=== PATIENT | female | born 1945 | race Two or more races ===

== ENCOUNTER 2020-05-04 18:15 | Inpatient (IN) | payer MEDICARE, OTHER ==
[~2020-05-04] VITALS: Ht 160 cm; Wt 93.1 kg
[2020-05-04] MEDS ORDERED: ACETAMINOPHEN 325 MG TAB PO ONE (19:00)
[2020-05-04 22:02] LABS: Basophils # (auto) 0 10 ^3/uL (0-0.2); Basophils % (auto) 0.1 % (0.0-2.0); Eosinophils # (auto) 0 10 ^3/uL (0-0.8); Hematocrit 31.8 % (36.0-46.0); Hemoglobin 10.6 g/dL (12.2-16.2); Lymphocytes # (auto) 0.4 10 ^3/uL (0.4-5.4); Lymphocytes % (auto) 5.7 % (10.0-50.0); Mean Corpuscular Hemoglobin 29.3 pg (28.0-32.0); Mean Corpuscular Hgb Conc. 33.4 g/dL (32.0-36.0); Mean Corpuscular Volume 87.9 fL (80.0-100.0); Monocytes # (auto) 0.2 10 ^3/uL (0-1.3); Monocytes % (auto) 3.7 % (0.0-12.0); Neutrophils # (auto) 5.9 10 ^3/uL (1.6-8.6); Neutrophils % (auto) 90.5 % (37.0-80.0); Nucleated Red Blood Cells % 0.1 %; Platelet Count (auto) 197 10^3/uL (140-450); Red Blood Cells 3.62 10^6/uL (4.0-5.20); Red Cell Distribution Width 13.3 % (11.8-14.3); White Blood Cell 6.6 10^3/uL (4.4-10.8)
[2020-05-04 22:21] LABS: Calcium 8.2 mg/dL (8.5-10.1)
[2020-05-04 22:30] LABS: Albumin 3.2 g/dL (3.4-5.0); BUN/Creatinine Ratio 20.9; Bilirubin, Total 0.4 mg/dL (0.2-1.0); Magnesium 2.4 mg/dL (1.6-2.6)
[2020-05-05] MEDS ORDERED: levoFLOXacin 750MG 150 ML IV ONE (01:45)
[2020-05-05] MEDS ORDERED: MORPHINE SULFATE 4 MG/ML SYR/VIAL IV ONE (02:15)
[2020-05-05] MEDS ORDERED: ONDANSETRON HCL 4 MG/2 ML VIAL IV ONE ×2 (02:15→07:00)
[2020-05-05 02:18] LABS: Urine Amorphous Crystal FEW /hpf (None Seen); Urine Bacteria FEW /hpf (None Seen); Urine Blood TRACE /uL (Negative); Urine WBC 1 /hpf (0 - 5)
[2020-05-05] MEDS ORDERED: InsuLIN REG 1unit/0.01ml Soln (100units/ml) IV ONE (04:00)
[2020-05-05] MEDS ORDERED: MORPHINE SULF INJ 2 MG/ML SYRINGE 1ML IV PRN (06:15)
[2020-05-05] MEDS ORDERED: HYDROmorphone HCL 2 MG/ML VL IV ONE (06:15)
[2020-05-05] MEDS ORDERED: ONDANSETRON HCL 4 MG/2 ML VIAL IV PRN (06:15)
[2020-05-05] MEDS ORDERED: NITROGLYCERIN 0.4 MG SL TAB SL PRN (06:15)
[2020-05-05] MEDS ORDERED: SODIUM CHLORIDE 0.9% 1,000 ML IV ONE (06:15)
[2020-05-05] MEDS ORDERED: DEXTROSE (50%) 50ML SYRG IV PRN (06:30)
[2020-05-05] MEDS ORDERED: ONDANSETRON HCL 4 MG/2 ML VIAL ONE (06:44)
[2020-05-05 10:29] LABS: Basophils # (auto) 0 10 ^3/uL (0-0.2); Basophils % (auto) 0.1 % (0.0-2.0); Eosinophils # (auto) 0 10 ^3/uL (0-0.8); Hematocrit 30.5 % (36.0-46.0); Hemoglobin 10.3 g/dL (12.2-16.2); Lymphocytes # (auto) 0.5 10 ^3/uL (0.4-5.4); Lymphocytes % (auto) 6.1 % (10.0-50.0); Mean Corpuscular Hemoglobin 29.8 pg (28.0-32.0); Mean Corpuscular Hgb Conc. 33.7 g/dL (32.0-36.0); Mean Corpuscular Volume 88.5 fL (80.0-100.0); Monocytes # (auto) 0.2 10 ^3/uL (0-1.3); Monocytes % (auto) 2.9 % (0.0-12.0); Neutrophils # (auto) 6.8 10 ^3/uL (1.6-8.6); Neutrophils % (auto) 90.9 % (37.0-80.0); Platelet Count (auto) 198 10^3/uL (140-450); Red Blood Cells 3.44 10^6/uL (4.0-5.20); Red Cell Distribution Width 13.4 % (11.8-14.3); White Blood Cell 7.5 10^3/uL (4.4-10.8)
[2020-05-05 10:55] LABS: Calcium 8.2 mg/dL (8.5-10.1); Potassium 4.8 mmol/L (3.5-5.1)
[2020-05-05 11:03] LABS: Albumin 2.7 g/dL (3.4-5.0); BUN/Creatinine Ratio 21.3; Bilirubin, Total 0.5 mg/dL (0.2-1.0); Total Protein 6.8 g/dL (6.4-8.2)
[2020-05-05] MEDS: levoFLOXacin 250MG 50 ML IV SCH (11:26)
[2020-05-05] MEDS: InsuLIN REG 1unit/0.01ml Soln (100units/ml) SC SCH ×2 (11:50→19:34)
[2020-05-05] MEDS: ACCU-CHEK COMFORT CURVE STRIP VI SCH ×2 (11:50→19:05)
[2020-05-05] MEDS ORDERED: ALBUTEROL SULF HFA 90MCG INH 200DOSE IN PRN (14:00)
[2020-05-05] MEDS ORDERED: ACETAMINOPHEN 325 MG TAB PO ONE (23:00)
[2020-05-06] MEDS: ACCU-CHEK COMFORT CURVE STRIP VI SCH ×5 (00:26→23:28)
[2020-05-06] MEDS: MORPHINE SULF INJ 2 MG/ML SYRINGE 1ML IV PRN ×3 (00:35→12:12)
[2020-05-06] MEDS: InsuLIN REG 1unit/0.01ml Soln (100units/ml) SC SCH ×5 (00:36→23:28)
[2020-05-06 02:38] VITALS: BP 122/56
[2020-05-06 05:00] VITALS: BP 125/60
[2020-05-06] MEDS ORDERED: ACETAMINOPHEN 500 MG TAB PO PRN (05:00)
[2020-05-06] MEDS: ACETAMINOPHEN 500 MG TAB PO PRN ×2 (06:42→21:35)
[2020-05-06 08:00] VITALS: BP 111/58
[2020-05-06] MEDS: levoFLOXacin 250MG 50 ML IV SCH (09:26)
[2020-05-06 09:33] LABS: Basophils # (auto) 0 10 ^3/uL (0-0.2); Basophils % (auto) 0.2 % (0.0-2.0); Eosinophils # (auto) 0 10 ^3/uL (0-0.8); Hematocrit 32.8 % (36.0-46.0); Hemoglobin 10.9 g/dL (12.2-16.2); Lymphocytes # (auto) 0.6 10 ^3/uL (0.4-5.4); Mean Corpuscular Hemoglobin 29.4 pg (28.0-32.0); Mean Corpuscular Hgb Conc. 33.1 g/dL (32.0-36.0); Mean Corpuscular Volume 88.7 fL (80.0-100.0); Monocytes # (auto) 0.2 10 ^3/uL (0-1.3); Monocytes % (auto) 2.8 % (0.0-12.0); Neutrophils # (auto) 7.7 10 ^3/uL (1.6-8.6); Platelet Count (auto) 255 10^3/uL (140-450); Red Cell Distribution Width 13.1 % (11.8-14.3); White Blood Cell 8.5 10^3/uL (4.4-10.8)
[2020-05-06 09:52] LABS: Albumin 2.7 g/dL (3.4-5.0); Calcium 8.8 mg/dL (8.5-10.1); Potassium 4.3 mmol/L (3.5-5.1)
[2020-05-06 09:55] LABS: BUN/Creatinine Ratio 21.1; Bilirubin, Total 0.4 mg/dL (0.2-1.0); Total Protein 7.1 g/dL (6.4-8.2)
[2020-05-06 12:00] VITALS: BP 140/64
[2020-05-06 17:00] VITALS: BP 130/65
[2020-05-06 22:00] VITALS: BP 166/78
[2020-05-06] MEDS ORDERED: METOPROLOL TARTRATE 50 MG TAB PO ONE (22:00)
[2020-05-07] MEDS ORDERED: METF-370 PO (04:18)
[2020-05-07] MEDS ORDERED: GLIP10TA9 PO (04:18)
[2020-05-07] MEDS ORDERED: ATOR20TA50 PO (04:18)
[2020-05-07] MEDS ORDERED: LOSA25TA38 PO (04:18)
[2020-05-07 05:00] VITALS: BP 107/45
[2020-05-07] MEDS: ACCU-CHEK COMFORT CURVE STRIP VI SCH ×3 (05:46→17:03)
[2020-05-07] MEDS: InsuLIN REG 1unit/0.01ml Soln (100units/ml) SC SCH ×3 (05:47→17:04)
[2020-05-07 06:16] LABS: Potassium 4.6 mmol/L (3.5-5.1)
[2020-05-07 06:25] LABS: Albumin 2.6 g/dL (3.4-5.0); BUN/Creatinine Ratio 24.5; Bilirubin, Total 0.4 mg/dL (0.2-1.0); Calcium 8.7 mg/dL (8.5-10.1); Phosphorus 4.5 mg/dL (2.5-4.90)
[2020-05-07 09:00] VITALS: BP 123/60
[2020-05-07] MEDS ORDERED: fentaNYL CITRATE 100 MCG/2 ML VL ONE (09:37)
[2020-05-07] MEDS ORDERED: MIDAZOLAM HCL 1MG/1ML-2 ML VIAL ONE (09:37)
[2020-05-07] MEDS: DexAMETHasone SOD PHOS 10MG/1ML VIAL INJ IV SCH (10:15)
[2020-05-07] MEDS ORDERED: cefTRIAXone 1GM/50ML D5W 50 ML IV ONE (10:45)
[2020-05-07] MEDS ORDERED: AZITHROMYCIN 500MG/ 250ML 250 ML IV ONE (10:45)
[2020-05-07] MEDS ORDERED: FAMOTIDINE 20 MG TAB PO ONE (10:45)
[2020-05-07] MEDS ORDERED: ALBUTEROL SULF HFA 90MCG INH 200DOSE IN SCH (12:00)
[2020-05-07 13:00] VITALS: BP_SYST 114; BP_SYST 135; BP_DIAS 57; BP_DIAS 71
[2020-05-07] MEDS ORDERED: ALBUTEROL SULF HFA 90MCG INH 200DOSE IN PRN (13:30)
[2020-05-07] MEDS: SODIUM CHLORIDE 0.9% 1,000 ML IV SCH (16:08)
[2020-05-07] MEDS: guaiFENesin 200 MG/10 ML UD PO SCH ×3 (16:09→23:12)
[2020-05-07 16:53] LABS: Protein, Urine 75.9 mg/dL (0.0-11.9)
[2020-05-07 17:00] VITALS: BP 117/60
[2020-05-07] MEDS: ALBUTEROL SULF HFA 90MCG INH 200DOSE IN PRN (19:34)
[2020-05-07 22:00] VITALS: BP 127/65
[2020-05-07] MEDS: HEPARIN SODIUM (PORCINE) 5000 UNITS/ML 1ML VIAL SC SCH (23:17)
[2020-05-08] MEDS: ACCU-CHEK COMFORT CURVE STRIP VI SCH ×5 (00:42→23:31)
[2020-05-08] MEDS: ACETAMINOPHEN 500 MG TAB PO PRN ×2 (00:42→06:03)
[2020-05-08] MEDS: InsuLIN REG 1unit/0.01ml Soln (100units/ml) SC SCH ×5 (00:50→23:35)
[2020-05-08 05:00] VITALS: BP 116/59
[2020-05-08] MEDS: guaiFENesin 200 MG/10 ML UD PO SCH ×4 (05:54→23:31)
[2020-05-08] MEDS: SODIUM CHLORIDE 0.9% 1,000 ML IV SCH ×2 (06:23→13:24)
[2020-05-08 06:56] LABS: Basophils # (auto) 0 10 ^3/uL (0-0.2); Basophils % (auto) 0.2 % (0.0-2.0); Eosinophils # (auto) 0.1 10 ^3/uL (0-0.8); Eosinophils % (auto) 0.8 % (0.0-7.0); Hematocrit 32.6 % (36.0-46.0); Hemoglobin 10.6 g/dL (12.2-16.2); Lymphocytes % (auto) 12.7 % (10.0-50.0); Mean Corpuscular Hgb Conc. 32.7 g/dL (32.0-36.0); Mean Corpuscular Volume 88.6 fL (80.0-100.0); Monocytes # (auto) 0.4 10 ^3/uL (0-1.3); Monocytes % (auto) 5.4 % (0.0-12.0); Neutrophils # (auto) 6.4 10 ^3/uL (1.6-8.6); Neutrophils % (auto) 80.9 % (37.0-80.0); Nucleated Red Blood Cells % 0.1 %; Platelet Count (auto) 284 10^3/uL (140-450); Red Blood Cells 3.68 10^6/uL (4.0-5.20); Red Cell Distribution Width 13.9 % (11.8-14.3); White Blood Cell 7.9 10^3/uL (4.4-10.8)
[2020-05-08 07:23] LABS: Albumin 2.6 g/dL (3.4-5.0); Calcium 8.5 mg/dL (8.5-10.1); Potassium 4.2 mmol/L (3.5-5.1)
[2020-05-08 07:32] LABS: BUN/Creatinine Ratio 28.7; Bilirubin, Total 0.4 mg/dL (0.2-1.0); Total Protein 7.2 g/dL (6.4-8.2)
[2020-05-08 08:00] VITALS: BP 119/64
[2020-05-08] MEDS ORDERED: FAMOTIDINE 20 MG TAB PO SCH (10:00)
[2020-05-08] MEDS: DexAMETHasone SOD PHOS 10MG/1ML VIAL INJ IV SCH (11:03)
[2020-05-08] MEDS: cefTRIAXone 1GM/50ML D5W 50 ML IV SCH (11:03)
[2020-05-08] MEDS: HEPARIN SODIUM (PORCINE) 5000 UNITS/ML 1ML VIAL SC SCH ×2 (11:04→21:15)
[2020-05-08] MEDS: AZITHROMYCIN 500MG/ 250ML 250 ML IV SCH (11:04)
[2020-05-08 12:00] VITALS: BP 144/77
[2020-05-08 17:00] VITALS: BP 146/86
[2020-05-08] MEDS: ALBUTEROL SULF HFA 90MCG INH 200DOSE IN PRN (19:12)
[2020-05-08] MEDS: HYDROmorphone HCL 2 MG/ML VL IV PRN (20:47)
[2020-05-09] MEDS: SODIUM CHLORIDE 0.9% 1,000 ML IV SCH ×2 (01:59→15:35)
[2020-05-09 05:00] VITALS: BP_SYST 101; BP_SYST 151; BP_DIAS 49; BP_DIAS 63
[2020-05-09] MEDS: ACCU-CHEK COMFORT CURVE STRIP VI SCH ×3 (06:00→18:00)
[2020-05-09] MEDS: guaiFENesin 200 MG/10 ML UD PO SCH ×3 (06:46→18:00)
[2020-05-09] MEDS: InsuLIN REG 1unit/0.01ml Soln (100units/ml) SC SCH ×3 (06:48→18:00)
[2020-05-09] MEDS: ALBUTEROL SULF HFA 90MCG INH 200DOSE IN PRN (07:10)
[2020-05-09] MEDS: HYDROmorphone HCL 2 MG/ML VL IV PRN ×2 (07:47→13:00)
[2020-05-09] MEDS: cefTRIAXone 1GM/50ML D5W 50 ML IV SCH (09:00)
[2020-05-09 09:24] VITALS: BP 159/75
[2020-05-09 09:38] LABS: Basophils # (auto) 0 10 ^3/uL (0-0.2); Basophils % (auto) 0.3 % (0.0-2.0); Eosinophils # (auto) 0 10 ^3/uL (0-0.8); Eosinophils % (auto) 0.1 % (0.0-7.0); Hematocrit 31.5 % (36.0-46.0); Hemoglobin 10.2 g/dL (12.2-16.2); Lymphocytes # (auto) 0.7 10 ^3/uL (0.4-5.4); Lymphocytes % (auto) 9.7 % (10.0-50.0); Mean Corpuscular Hemoglobin 29.2 pg (28.0-32.0); Mean Corpuscular Hgb Conc. 32.6 g/dL (32.0-36.0); Mean Corpuscular Volume 89.6 fL (80.0-100.0); Monocytes # (auto) 0.6 10 ^3/uL (0-1.3); Monocytes % (auto) 7.7 % (0.0-12.0); Neutrophils # (auto) 5.9 10 ^3/uL (1.6-8.6); Neutrophils % (auto) 82.2 % (37.0-80.0); Platelet Count (auto) 349 10^3/uL (140-450); Red Blood Cells 3.51 10^6/uL (4.0-5.20); Red Cell Distribution Width 13.3 % (11.8-14.3); White Blood Cell 7.2 10^3/uL (4.4-10.8)
[2020-05-09 09:48] LABS: Potassium 3.9 mmol/L (3.5-5.1)
[2020-05-09] MEDS: DexAMETHasone SOD PHOS 10MG/1ML VIAL INJ IV SCH (10:00)
[2020-05-09] MEDS: AZITHROMYCIN 500MG/ 250ML 250 ML IV SCH (10:00)
[2020-05-09] MEDS: HEPARIN SODIUM (PORCINE) 5000 UNITS/ML 1ML VIAL SC SCH ×2 (10:00→22:00)
[2020-05-09 10:12] LABS: Albumin 2.6 g/dL (3.4-5.0); BUN/Creatinine Ratio 28.4; Bilirubin, Total 0.4 mg/dL (0.2-1.0); Calcium 8.8 mg/dL (8.5-10.1); Total Protein 7.4 g/dL (6.4-8.2)
[2020-05-09 13:00] VITALS: BP 135/77
[2020-05-09 17:00] VITALS: BP 162/82
[2020-05-09 20:05] VITALS: BP 131/74
[2020-05-10] VITALS (7 sets, daily range): BP systolic 120–148; BP diastolic 51–83
[2020-05-10] MEDS: guaiFENesin 200 MG/10 ML UD PO SCH ×5 (00:14→22:54)
[2020-05-10] MEDS: ACCU-CHEK COMFORT CURVE STRIP VI SCH ×5 (00:15→22:54)
[2020-05-10] MEDS: HYDROmorphone HCL 2 MG/ML VL IV PRN ×2 (04:05→19:50)
[2020-05-10] MEDS: SODIUM CHLORIDE 0.9% 1,000 ML IV SCH ×2 (05:47→18:02)
[2020-05-10] MEDS: InsuLIN REG 1unit/0.01ml Soln (100units/ml) SC SCH ×4 (05:50→18:02)
[2020-05-10 07:43] LABS: Basophils # (auto) 0 10 ^3/uL (0-0.2); Basophils % (auto) 0.1 % (0.0-2.0); Eosinophils # (auto) 0 10 ^3/uL (0-0.8); Eosinophils % (auto) 0.2 % (0.0-7.0); Hematocrit 31.3 % (36.0-46.0); Hemoglobin 10.2 g/dL (12.2-16.2); Lymphocytes # (auto) 0.7 10 ^3/uL (0.4-5.4); Lymphocytes % (auto) 8.4 % (10.0-50.0); Mean Corpuscular Hemoglobin 29.3 pg (28.0-32.0); Mean Corpuscular Hgb Conc. 32.6 g/dL (32.0-36.0); Mean Corpuscular Volume 90.1 fL (80.0-100.0); Monocytes # (auto) 0.3 10 ^3/uL (0-1.3); Monocytes % (auto) 3.9 % (0.0-12.0); Neutrophils # (auto) 7.3 10 ^3/uL (1.6-8.6); Neutrophils % (auto) 87.4 % (37.0-80.0); Platelet Count (auto) 338 10^3/uL (140-450); Red Blood Cells 3.47 10^6/uL (4.0-5.20); Red Cell Distribution Width 13.5 % (11.8-14.3); White Blood Cell 8.4 10^3/uL (4.4-10.8)
[2020-05-10 07:55] LABS: Albumin 2.5 g/dL (3.4-5.0); BUN/Creatinine Ratio 23.6; Calcium 8.8 mg/dL (8.5-10.1)
[2020-05-10 07:57] LABS: Bilirubin, Total 0.6 mg/dL (0.2-1.0); Total Protein 6.9 g/dL (6.4-8.2)
[2020-05-10 08:27] LABS: CRP High Sensitivity 9.09 mg/dL (< 0.3)
[2020-05-10] MEDS ORDERED: REMDESIVIR PER PHARMACY 0 ML IV SCH ×2 (09:30→10:45)
[2020-05-10] MEDS: cefTRIAXone 1GM/50ML D5W 50 ML IV SCH (12:22)
[2020-05-10] MEDS: DexAMETHasone SOD PHOS 10MG/1ML VIAL INJ IV SCH (12:22)
[2020-05-10] MEDS: AZITHROMYCIN 500MG/ 250ML 250 ML IV SCH (12:23)
[2020-05-10] MEDS: HEPARIN SODIUM (PORCINE) 5000 UNITS/ML 1ML VIAL SC SCH ×2 (12:24→22:00)
[2020-05-10] MEDS ORDERED: REMDESIVIR 200 MG in NS 210ml LOADING DOSE ADULT IV ONE ×2 (15:00→18:15)
[2020-05-10] MEDS: ALBUTEROL SULF HFA 90MCG INH 200DOSE IN PRN (20:58)
[2020-05-11] MEDS: InsuLIN REG 1unit/0.01ml Soln (100units/ml) SC SCH ×5 (00:10→22:29)
[2020-05-11 05:00] VITALS: BP 146/78
[2020-05-11] MEDS: ACCU-CHEK COMFORT CURVE STRIP VI SCH ×4 (05:14→22:26)
[2020-05-11] MEDS: guaiFENesin 200 MG/10 ML UD PO SCH ×4 (05:15→22:26)
[2020-05-11 08:36] LABS: Basophils # (auto) 0 10 ^3/uL (0-0.2); Basophils % (auto) 0.5 % (0.0-2.0); Eosinophils # (auto) 0 10 ^3/uL (0-0.8); Eosinophils % (auto) 0.1 % (0.0-7.0); Hematocrit 32.3 % (36.0-46.0); Hemoglobin 10.6 g/dL (12.2-16.2); Lymphocytes # (auto) 0.8 10 ^3/uL (0.4-5.4); Lymphocytes % (auto) 7.6 % (10.0-50.0); Mean Corpuscular Hemoglobin 29.3 pg (28.0-32.0); Mean Corpuscular Hgb Conc. 32.8 g/dL (32.0-36.0); Mean Corpuscular Volume 89.5 fL (80.0-100.0); Monocytes # (auto) 0.4 10 ^3/uL (0-1.3); Monocytes % (auto) 3.7 % (0.0-12.0); Neutrophils % (auto) 88.1 % (37.0-80.0); Platelet Count (auto) 423 10^3/uL (140-450); Red Cell Distribution Width 13.7 % (11.8-14.3); White Blood Cell 10.3 10^3/uL (4.4-10.8)
[2020-05-11 09:00] VITALS: BP 147/73
[2020-05-11 09:02] LABS: Calcium 8.8 mg/dL (8.5-10.1); Potassium 3.7 mmol/L (3.5-5.1)
[2020-05-11 09:11] LABS: BUN/Creatinine Ratio 21.9; CRP High Sensitivity 11.9 mg/dL (< 0.3)
[2020-05-11] MEDS ORDERED: HEPARIN SODIUM (PORCINE) 5000 UNITS/ML 1ML VIAL ONE (09:13)
[2020-05-11] MEDS: HEPARIN SODIUM (PORCINE) 5000 UNITS/ML 1ML VIAL SC SCH ×2 (10:00→22:14)
[2020-05-11] MEDS: ALBUTEROL SULF HFA 90MCG INH 200DOSE IN PRN (10:07)
[2020-05-11] MEDS: cefTRIAXone 1GM/50ML D5W 50 ML IV SCH (10:07)
[2020-05-11] MEDS: SODIUM CHLORIDE 0.9% 1,000 ML IV SCH ×2 (10:09→20:55)
[2020-05-11] MEDS: AZITHROMYCIN 500MG/ 250ML 250 ML IV SCH (10:10)
[2020-05-11] MEDS: DexAMETHasone SOD PHOS 10MG/1ML VIAL INJ IV SCH (10:10)
[2020-05-11] MEDS: FAMOTIDINE 20 MG TAB PO SCH (10:10)
[2020-05-11 13:00] VITALS: BP 153/72
[2020-05-11] MEDS: HYDROmorphone HCL 2 MG/ML VL IV PRN (14:46)
[2020-05-11] MEDS: REMDESIVIR 100 MG in SODIUM CHL 0.9% 250 ML IV SCH (16:26)
[2020-05-11 17:00] VITALS: BP 147/67
[2020-05-11 21:05] VITALS: BP 168/99
[2020-05-12 00:06] VITALS: BP 151/73
[2020-05-12 05:00] VITALS: BP 156/79
[2020-05-12] MEDS: guaiFENesin 200 MG/10 ML UD PO SCH ×4 (06:00→18:23)
[2020-05-12] MEDS: ACCU-CHEK COMFORT CURVE STRIP VI SCH ×3 (06:26→18:20)
[2020-05-12] MEDS: InsuLIN REG 1unit/0.01ml Soln (100units/ml) SC SCH ×3 (06:26→18:53)
[2020-05-12 08:06] LABS: Basophils # (auto) 0 10 ^3/uL (0-0.2); Basophils % (auto) 0.2 % (0.0-2.0); Eosinophils # (auto) 0 10 ^3/uL (0-0.8); Hematocrit 31.9 % (36.0-46.0); Hemoglobin 10.4 g/dL (12.2-16.2); Lymphocytes # (auto) 0.9 10 ^3/uL (0.4-5.4); Lymphocytes % (auto) 7.7 % (10.0-50.0); Mean Corpuscular Hgb Conc. 32.7 g/dL (32.0-36.0); Mean Corpuscular Volume 88.8 fL (80.0-100.0); Monocytes # (auto) 0.4 10 ^3/uL (0-1.3); Monocytes % (auto) 3.7 % (0.0-12.0); Neutrophils # (auto) 10.4 10 ^3/uL (1.6-8.6); Neutrophils % (auto) 88.4 % (37.0-80.0); Platelet Count (auto) 456 10^3/uL (140-450); Red Blood Cells 3.59 10^6/uL (4.0-5.20); Red Cell Distribution Width 13.7 % (11.8-14.3); White Blood Cell 11.7 10^3/uL (4.4-10.8)
[2020-05-12 08:11] LABS: BUN/Creatinine Ratio 22.7; Calcium 8.8 mg/dL (8.5-10.1); Potassium 3.7 mmol/L (3.5-5.1)
[2020-05-12] MEDS: DexAMETHasone SOD PHOS 10MG/1ML VIAL INJ IV SCH (08:54)
[2020-05-12] MEDS: AZITHROMYCIN 500MG/ 250ML 250 ML IV SCH (08:54)
[2020-05-12] MEDS: cefTRIAXone 1GM/50ML D5W 50 ML IV SCH (08:54)
[2020-05-12] MEDS: SODIUM CHLORIDE 0.9% 1,000 ML IV SCH (08:55)
[2020-05-12] MEDS: HEPARIN SODIUM (PORCINE) 5000 UNITS/ML 1ML VIAL SC SCH (08:55)
[2020-05-12] MEDS: D5W 5% 1,000 ML IV SCH (10:45)
[2020-05-12 12:00] VITALS: BP 139/69
[2020-05-12] MEDS: REMDESIVIR 100 MG in SODIUM CHL 0.9% 250 ML IV SCH (15:46)
[2020-05-12 17:00] VITALS: BP 143/92
[2020-05-12] MEDS: ALBUTEROL SULF HFA 90MCG INH 200DOSE IN PRN (17:11)
[2020-05-12 22:00] VITALS: BP 145/88
[2020-05-12] MEDS ORDERED: ENOXAPARIN SOD 60 MG/0.6 ML SYRINGE SC SCH (22:00)
[2020-05-13] MEDS: ACCU-CHEK COMFORT CURVE STRIP VI SCH ×4 (00:33→17:35)
[2020-05-13] MEDS: InsuLIN REG 1unit/0.01ml Soln (100units/ml) SC SCH ×4 (00:34→17:36)
[2020-05-13 05:09] VITALS: BP 152/80
[2020-05-13] MEDS: guaiFENesin 200 MG/10 ML UD PO SCH ×3 (05:52→17:34)
[2020-05-13] MEDS: D5W 5% 1,000 ML IV SCH (06:30)
[2020-05-13 09:00] VITALS: BP 148/86
[2020-05-13 09:45] LABS: Basophils # (auto) 0 10 ^3/uL (0-0.2); Basophils % (auto) 0.1 % (0.0-2.0); Eosinophils # (auto) 0.1 10 ^3/uL (0-0.8); Monocytes # (auto) 0.4 10 ^3/uL (0-1.3)
[2020-05-13 09:48] LABS: Eosinophils % (auto) 0.5 % (0.0-7.0); Hematocrit 32.8 % (36.0-46.0); Hemoglobin 10.7 g/dL (12.2-16.2); Lymphocytes % (auto) 6.6 % (10.0-50.0); Mean Corpuscular Hemoglobin 28.8 pg (28.0-32.0); Mean Corpuscular Hgb Conc. 32.5 g/dL (32.0-36.0); Mean Corpuscular Volume 88.6 fL (80.0-100.0); Monocytes % (auto) 2.6 % (0.0-12.0); Neutrophils # (auto) 13.4 10 ^3/uL (1.6-8.6); Neutrophils % (auto) 90.2 % (37.0-80.0); Red Blood Cells 3.71 10^6/uL (4.0-5.20); White Blood Cell 14.9 10^3/uL (4.4-10.8)
[2020-05-13 10:12] LABS: Potassium 3.3 mmol/L (3.5-5.1)
[2020-05-13 10:17] LABS: Platelet Count (auto) 515 10^3/uL (140-450)
[2020-05-13 10:27] LABS: BUN/Creatinine Ratio 21.6; Calcium 8.3 mg/dL (8.5-10.1)
[2020-05-13] MEDS: cefTRIAXone 1GM/50ML D5W 50 ML IV SCH (10:29)
[2020-05-13] MEDS: FAMOTIDINE 20 MG TAB PO SCH (10:30)
[2020-05-13] MEDS: DexAMETHasone SOD PHOS 10MG/1ML VIAL INJ IV SCH (10:30)
[2020-05-13] MEDS: AZITHROMYCIN 500MG/ 250ML 250 ML IV SCH (10:30)
[2020-05-13] MEDS: HYDROcodone-ACET 5/325MG TAB PO PRN (10:31)
[2020-05-13 13:00] VITALS: BP 149/78
[2020-05-13] MEDS: ALBUTEROL SULF HFA 90MCG INH 200DOSE IN PRN ×2 (13:01→22:00)
[2020-05-13] MEDS: ENOXAPARIN SOD 60 MG/0.6 ML SYRINGE SC SCH (15:15)
[2020-05-13] MEDS: REMDESIVIR 100 MG in SODIUM CHL 0.9% 250 ML IV SCH (16:38)
[2020-05-13 17:21] VITALS: BP 143/75
[2020-05-13 21:50] VITALS: BP 148/81
[2020-05-13] MEDS ORDERED: POTASSIUM CHL 20 Meq TABLET PO ONE (23:45)
[2020-05-14] MEDS ORDERED: DEXTROSE (50%) 50ML SYRG IV PRN ×2 (00:45→01:00)
[2020-05-14] MEDS: SOD CHL 0.45% 1,000 ML IV SCH ×2 (01:17→16:17)
[2020-05-14] MEDS: ACCU-CHEK COMFORT CURVE STRIP VI SCH ×4 (01:17→17:36)
[2020-05-14] MEDS: guaiFENesin 200 MG/10 ML UD PO SCH ×4 (01:17→17:36)
[2020-05-14] MEDS: InsuLIN REG 1unit/0.01ml Soln (100units/ml) SC SCH ×4 (01:19→17:35)
[2020-05-14] MEDS: ENOXAPARIN SOD 60 MG/0.6 ML SYRINGE SC SCH ×2 (03:17→16:17)
[2020-05-14 05:00] VITALS: BP 147/89
[2020-05-14] MEDS ORDERED: InsuLIN REG 1unit/0.01ml Soln (100units/ml) SC SCH (06:00)
[2020-05-14] MEDS ORDERED: ACCU-CHEK COMFORT CURVE STRIP VI SCH (06:00)
[2020-05-14 06:56] LABS: Hemoglobin 10.9 g/dL (12.2-16.2); Mean Corpuscular Hgb Conc. 32.5 g/dL (32.0-36.0)
[2020-05-14 06:58] LABS: Basophils # (auto) 0 10 ^3/uL (0-0.2); Basophils % (auto) 0.1 % (0.0-2.0); Eosinophils # (auto) 0 10 ^3/uL (0-0.8); Eosinophils % (auto) 0.2 % (0.0-7.0); Hematocrit 33.7 % (36.0-46.0); Lymphocytes # (auto) 0.6 10 ^3/uL (0.4-5.4); Lymphocytes % (auto) 5.1 % (10.0-50.0); Mean Corpuscular Hemoglobin 28.7 pg (28.0-32.0); Mean Corpuscular Volume 88.4 fL (80.0-100.0); Monocytes # (auto) 0.2 10 ^3/uL (0-1.3); Monocytes % (auto) 1.7 % (0.0-12.0); Neutrophils # (auto) 11.8 10 ^3/uL (1.6-8.6); Neutrophils % (auto) 92.9 % (37.0-80.0); Platelet Count (auto) 460 10^3/uL (140-450); Red Blood Cells 3.81 10^6/uL (4.0-5.20); Red Cell Distribution Width 14.1 % (11.8-14.3); White Blood Cell 12.7 10^3/uL (4.4-10.8)
[2020-05-14 07:10] LABS: BUN/Creatinine Ratio 24.1; Calcium 8.2 mg/dL (8.5-10.1); Potassium 3.8 mmol/L (3.5-5.1)
[2020-05-14] MEDS ORDERED: FLEET ENEMA(ADULT) 135 ML PR ONE (07:15)
[2020-05-14 09:00] VITALS: BP 154/82
[2020-05-14] MEDS: cefTRIAXone 1GM/50ML D5W 50 ML IV SCH (09:25)
[2020-05-14] MEDS: DOCUSATE SOD 100 MG CAP PO SCH ×2 (09:26→21:17)
[2020-05-14] MEDS: AZITHROMYCIN 500MG/ 250ML 250 ML IV SCH (09:26)
[2020-05-14] MEDS: DexAMETHasone SOD PHOS 10MG/1ML VIAL INJ IV SCH (09:26)
[2020-05-14] MEDS: ALBUTEROL SULF HFA 90MCG INH 200DOSE IN PRN (10:05)
[2020-05-14 13:00] VITALS: BP 128/72
[2020-05-14] MEDS: REMDESIVIR 100 MG in SODIUM CHL 0.9% 250 ML IV SCH (16:17)
[2020-05-14 17:00] VITALS: BP 137/70
[2020-05-14 22:00] VITALS: BP 144/79
[2020-05-15] MEDS: ACCU-CHEK COMFORT CURVE STRIP VI SCH ×5 (00:45→23:22)
[2020-05-15] MEDS: guaiFENesin 200 MG/10 ML UD PO SCH ×5 (00:47→23:22)
[2020-05-15] MEDS: InsuLIN REG 1unit/0.01ml Soln (100units/ml) SC SCH ×5 (00:48→23:48)
[2020-05-15] MEDS: SOD CHL 0.45% 1,000 ML IV SCH ×2 (03:33→17:00)
[2020-05-15] MEDS: ENOXAPARIN SOD 60 MG/0.6 ML SYRINGE SC SCH ×2 (03:33→16:42)
[2020-05-15 05:00] VITALS: BP 134/69
[2020-05-15 10:28] LABS: Basophils # (auto) 0 10 ^3/uL (0-0.2); Eosinophils # (auto) 0 10 ^3/uL (0-0.8); Eosinophils % (auto) 0.1 % (0.0-7.0); Hematocrit 30.2 % (36.0-46.0); Hemoglobin 9.8 g/dL (12.2-16.2); Lymphocytes # (auto) 0.8 10 ^3/uL (0.4-5.4); Lymphocytes % (auto) 4.9 % (10.0-50.0); Mean Corpuscular Hgb Conc. 32.5 g/dL (32.0-36.0); Mean Corpuscular Volume 89.2 fL (80.0-100.0); Monocytes # (auto) 0.3 10 ^3/uL (0-1.3); Neutrophils # (auto) 15.3 10 ^3/uL (1.6-8.6); Nucleated Red Blood Cells % 0.1 %; Platelet Count (auto) 405 10^3/uL (140-450); Red Blood Cells 3.38 10^6/uL (4.0-5.20); Red Cell Distribution Width 13.8 % (11.8-14.3); White Blood Cell 16.4 10^3/uL (4.4-10.8)
[2020-05-15 10:52] LABS: BUN/Creatinine Ratio 26.4; Calcium 8.2 mg/dL (8.5-10.1)
[2020-05-15] MEDS: cefTRIAXone 1GM/50ML D5W 50 ML IV SCH (15:16)
[2020-05-15] MEDS: DOCUSATE SOD 100 MG CAP PO SCH ×2 (15:16→21:02)
[2020-05-15] MEDS: DexAMETHasone SOD PHOS 10MG/1ML VIAL INJ IV SCH (15:16)
[2020-05-15] MEDS: AZITHROMYCIN 500MG/ 250ML 250 ML IV SCH (15:17)
[2020-05-15] MEDS: FAMOTIDINE 20 MG TAB PO SCH (15:17)
[2020-05-15 21:55] VITALS: BP 120/68
[2020-05-16] MEDS: ENOXAPARIN SOD 60 MG/0.6 ML SYRINGE SC SCH ×2 (02:53→15:25)
[2020-05-16 05:00] VITALS: BP 106/68
[2020-05-16] MEDS: guaiFENesin 200 MG/10 ML UD PO SCH ×4 (05:28→23:21)
[2020-05-16] MEDS: ACCU-CHEK COMFORT CURVE STRIP VI SCH ×4 (05:28→23:21)
[2020-05-16] MEDS: InsuLIN REG 1unit/0.01ml Soln (100units/ml) SC SCH ×4 (05:31→23:23)
[2020-05-16] MEDS: SOD CHL 0.45% 1,000 ML IV SCH ×2 (05:38→21:47)
[2020-05-16 09:00] VITALS: BP 121/64
[2020-05-16 09:16] LABS: Basophils # (auto) 0 10 ^3/uL (0-0.2); Basophils % (auto) 0.2 % (0.0-2.0); Eosinophils # (auto) 0 10 ^3/uL (0-0.8); Eosinophils % (auto) 0.1 % (0.0-7.0); Hematocrit 31.6 % (36.0-46.0); Hemoglobin 10.5 g/dL (12.2-16.2); Lymphocytes % (auto) 6.7 % (10.0-50.0); Mean Corpuscular Hemoglobin 29.6 pg (28.0-32.0); Mean Corpuscular Hgb Conc. 33.1 g/dL (32.0-36.0); Mean Corpuscular Volume 89.3 fL (80.0-100.0); Monocytes # (auto) 0.3 10 ^3/uL (0-1.3); Neutrophils # (auto) 14.3 10 ^3/uL (1.6-8.6); Platelet Count (auto) 439 10^3/uL (140-450); Red Blood Cells 3.55 10^6/uL (4.0-5.20); Red Cell Distribution Width 13.7 % (11.8-14.3); White Blood Cell 15.7 10^3/uL (4.4-10.8)
[2020-05-16] MEDS: cefTRIAXone 1GM/50ML D5W 50 ML IV SCH (09:43)
[2020-05-16] MEDS: AZITHROMYCIN 500MG/ 250ML 250 ML IV SCH (09:44)
[2020-05-16] MEDS: DexAMETHasone SOD PHOS 10MG/1ML VIAL INJ IV SCH (09:44)
[2020-05-16] MEDS: DOCUSATE SOD 100 MG CAP PO SCH ×2 (09:45→23:21)
[2020-05-16] MEDS: ALBUTEROL SULF HFA 90MCG INH 200DOSE IN PRN ×2 (12:54→21:31)
[2020-05-16 13:00] VITALS: BP 130/77
[2020-05-16] MEDS: HYDROcodone-ACET 5/325MG TAB PO PRN (15:33)
[2020-05-16 17:00] VITALS: BP 108/63
[2020-05-16 22:00] VITALS: BP 124/60
[2020-05-17] MEDS: ENOXAPARIN SOD 60 MG/0.6 ML SYRINGE SC SCH ×2 (04:51→15:38)
[2020-05-17 05:00] VITALS: BP 119/68
[2020-05-17] MEDS: guaiFENesin 200 MG/10 ML UD PO SCH ×3 (06:07→17:42)
[2020-05-17] MEDS: ACCU-CHEK COMFORT CURVE STRIP VI SCH ×3 (06:07→17:18)
[2020-05-17] MEDS: InsuLIN REG 1unit/0.01ml Soln (100units/ml) SC SCH ×3 (06:08→17:42)
[2020-05-17 06:54] LABS: Basophils # (auto) 0 10 ^3/uL (0-0.2); Basophils % (auto) 0.2 % (0.0-2.0); Eosinophils # (auto) 0.1 10 ^3/uL (0-0.8); Eosinophils % (auto) 0.5 % (0.0-7.0); Hematocrit 32.4 % (36.0-46.0); Hemoglobin 10.6 g/dL (12.2-16.2); Lymphocytes # (auto) 1.3 10 ^3/uL (0.4-5.4); Mean Corpuscular Hemoglobin 29.1 pg (28.0-32.0); Mean Corpuscular Hgb Conc. 32.6 g/dL (32.0-36.0); Mean Corpuscular Volume 89.2 fL (80.0-100.0); Monocytes # (auto) 0.4 10 ^3/uL (0-1.3); Monocytes % (auto) 2.8 % (0.0-12.0); Neutrophils % (auto) 87.5 % (37.0-80.0); Platelet Count (auto) 445 10^3/uL (140-450); Red Blood Cells 3.64 10^6/uL (4.0-5.20); Red Cell Distribution Width 13.9 % (11.8-14.3); White Blood Cell 14.9 10^3/uL (4.4-10.8)
[2020-05-17 07:22] LABS: BUN/Creatinine Ratio 27.6; Calcium 8.4 mg/dL (8.5-10.1)
[2020-05-17] MEDS: ALBUTEROL SULF HFA 90MCG INH 200DOSE IN PRN ×2 (07:48→22:02)
[2020-05-17 09:00] VITALS: BP 125/59
[2020-05-17] MEDS: DexAMETHasone SOD PHOS 10MG/1ML VIAL INJ IV SCH (10:05)
[2020-05-17] MEDS: cefTRIAXone 1GM/50ML D5W 50 ML IV SCH (10:05)
[2020-05-17] MEDS: HYDROcodone-ACET 5/325MG TAB PO PRN (10:06)
[2020-05-17] MEDS: FAMOTIDINE 20 MG TAB PO SCH (10:06)
[2020-05-17] MEDS: DOCUSATE SOD 100 MG CAP PO SCH (10:06)
[2020-05-17] MEDS: AZITHROMYCIN 500MG/ 250ML 250 ML IV SCH (10:08)
[2020-05-17] MEDS: SOD CHL 0.45% 1,000 ML IV SCH (10:14)
[2020-05-17 13:00] VITALS: BP 112/57
[2020-05-17 16:17] VITALS: BP 131/70
[2020-05-17 21:00] VITALS: BP 132/64
[2020-05-18] MEDS: DOCUSATE SOD 100 MG CAP PO SCH ×3 (00:15→22:00)
[2020-05-18] MEDS: SOD CHL 0.45% 1,000 ML IV SCH ×3 (00:15→23:29)
[2020-05-18] MEDS: guaiFENesin 200 MG/10 ML UD PO SCH ×5 (00:15→23:23)
[2020-05-18] MEDS: ACCU-CHEK COMFORT CURVE STRIP VI SCH ×5 (00:16→23:23)
[2020-05-18] MEDS: InsuLIN REG 1unit/0.01ml Soln (100units/ml) SC SCH ×4 (00:16→18:00)
[2020-05-18 04:30] VITALS: BP 135/65
[2020-05-18] MEDS: ENOXAPARIN SOD 60 MG/0.6 ML SYRINGE SC SCH ×2 (04:58→22:00)
[2020-05-18 05:55] LABS: Basophils # (auto) 0 10 ^3/uL (0-0.2); Basophils % (auto) 0.2 % (0.0-2.0); Eosinophils # (auto) 0.1 10 ^3/uL (0-0.8); Eosinophils % (auto) 0.8 % (0.0-7.0); Hemoglobin 10.6 g/dL (12.2-16.2); Mean Corpuscular Volume 88.6 fL (80.0-100.0)
[2020-05-18 05:59] LABS: Hematocrit 32.4 % (36.0-46.0); Lymphocytes # (auto) 1.4 10 ^3/uL (0.4-5.4); Lymphocytes % (auto) 9.9 % (10.0-50.0); Mean Corpuscular Hemoglobin 28.9 pg (28.0-32.0); Mean Corpuscular Hgb Conc. 32.6 g/dL (32.0-36.0); Monocytes # (auto) 0.4 10 ^3/uL (0-1.3); Neutrophils # (auto) 12.2 10 ^3/uL (1.6-8.6); Neutrophils % (auto) 86.1 % (37.0-80.0); Platelet Count (auto) 472 10^3/uL (140-450); Red Blood Cells 3.66 10^6/uL (4.0-5.20); White Blood Cell 14.2 10^3/uL (4.4-10.8)
[2020-05-18 06:17] LABS: Potassium 4.2 mmol/L (3.5-5.1)
[2020-05-18 06:33] LABS: BUN/Creatinine Ratio 25.2; Calcium 8.4 mg/dL (8.5-10.1)
[2020-05-18] MEDS: HYDROcodone-ACET 5/325MG TAB PO PRN (06:51)
[2020-05-18] MEDS: ALBUTEROL SULF HFA 90MCG INH 200DOSE IN PRN ×2 (07:52→22:22)
[2020-05-18 09:00] VITALS: BP 122/65
[2020-05-18] MEDS: AZITHROMYCIN 500MG/ 250ML 250 ML IV SCH (10:00)
[2020-05-18] MEDS: cefTRIAXone 1GM/50ML D5W 50 ML IV SCH (11:30)
[2020-05-18] MEDS: DexAMETHasone SOD PHOS 10MG/1ML VIAL INJ IV SCH (11:31)
[2020-05-18 13:00] VITALS: BP 136/69
[2020-05-18 17:00] VITALS: BP 140/76
[2020-05-18 22:00] VITALS: BP 129/72
[2020-05-19 05:00] VITALS: BP 115/73
[2020-05-19] MEDS: guaiFENesin 200 MG/10 ML UD PO SCH ×3 (05:32→17:21)
[2020-05-19] MEDS: ACCU-CHEK COMFORT CURVE STRIP VI SCH ×3 (05:32→17:21)
[2020-05-19] MEDS: InsuLIN REG 1unit/0.01ml Soln (100units/ml) SC SCH ×4 (05:44→17:21)
[2020-05-19] MEDS: HYDROcodone-ACET 5/325MG TAB PO PRN ×2 (06:04→16:01)
[2020-05-19] MEDS: ALBUTEROL SULF HFA 90MCG INH 200DOSE IN PRN (07:25)
[2020-05-19 07:48] LABS: Calcium 8.2 mg/dL (8.5-10.1); Potassium 3.9 mmol/L (3.5-5.1)
[2020-05-19 07:51] LABS: BUN/Creatinine Ratio 28.2
[2020-05-19 08:16] LABS: Basophils # (auto) 0 10 ^3/uL (0-0.2); Basophils % (auto) 0.2 % (0.0-2.0); Eosinophils # (auto) 0.1 10 ^3/uL (0-0.8); Eosinophils % (auto) 0.5 % (0.0-7.0); Hemoglobin 9.6 g/dL (12.2-16.2); Lymphocytes # (auto) 1.5 10 ^3/uL (0.4-5.4); Lymphocytes % (auto) 11.6 % (10.0-50.0); Mean Corpuscular Hemoglobin 28.6 pg (28.0-32.0); Mean Corpuscular Volume 89.2 fL (80.0-100.0); Monocytes # (auto) 0.4 10 ^3/uL (0-1.3); Neutrophils # (auto) 10.7 10 ^3/uL (1.6-8.6); Neutrophils % (auto) 84.7 % (37.0-80.0); Platelet Count (auto) 429 10^3/uL (140-450); Red Blood Cells 3.37 10^6/uL (4.0-5.20); White Blood Cell 12.7 10^3/uL (4.4-10.8)
[2020-05-19 09:00] VITALS: BP 128/71
[2020-05-19] MEDS: AZITHROMYCIN 500MG/ 250ML 250 ML IV SCH (09:44)
[2020-05-19] MEDS: DexAMETHasone SOD PHOS 10MG/1ML VIAL INJ IV SCH (09:44)
[2020-05-19] MEDS: cefTRIAXone 1GM/50ML D5W 50 ML IV SCH (09:44)
[2020-05-19] MEDS: FAMOTIDINE 20 MG TAB PO SCH (09:45)
[2020-05-19] MEDS: DOCUSATE SOD 100 MG CAP PO SCH (09:45)
[2020-05-19] MEDS: ENOXAPARIN SOD 60 MG/0.6 ML SYRINGE SC SCH ×2 (09:50→22:00)
[2020-05-19] MEDS ORDERED: SENNA 8.6 MG TAB PO ONE (12:15)
[2020-05-19] MEDS ORDERED: BISACODYL 10 MG RECT SUPP PR ONE (12:15)
[2020-05-19 13:00] VITALS: BP 116/65
[2020-05-19] MEDS: SOD CHL 0.45% 1,000 ML IV SCH (14:05)
[2020-05-19] MEDS ORDERED: FLEET ENEMA(ADULT) 135 ML PR ONE (16:00)
[2020-05-19 17:00] VITALS: BP 127/65
[2020-05-19 17:20] LABS: INR 1.04 (0.9-1.15)
[2020-05-19 20:00] VITALS: BP 117/61
[2020-05-20] MEDS: guaiFENesin 200 MG/10 ML UD PO SCH ×4 (00:09→17:10)
[2020-05-20] MEDS: DOCUSATE SOD 100 MG CAP PO SCH ×3 (00:09→22:07)
[2020-05-20] MEDS: ACCU-CHEK COMFORT CURVE STRIP VI SCH ×4 (00:54→17:11)
[2020-05-20] MEDS: InsuLIN REG 1unit/0.01ml Soln (100units/ml) SC SCH ×4 (00:55→17:11)
[2020-05-20] MEDS: ALBUTEROL SULF HFA 90MCG INH 200DOSE IN PRN ×2 (01:29→23:42)
[2020-05-20] MEDS: SOD CHL 0.45% 1,000 ML IV SCH ×2 (03:25→16:45)
[2020-05-20 06:41] LABS: Hematocrit 33.9 % (36.0-46.0); Hemoglobin 10.1 g/dL (12.2-16.2); Mean Corpuscular Hemoglobin 29.7 pg (28.0-32.0); Mean Corpuscular Hgb Conc. 29.7 g/dL (32.0-36.0); Mean Corpuscular Volume 99.9 fL (80.0-100.0); Platelet Count (auto) 413 10^3/uL (140-450); Red Cell Distribution Width 15.6 % (11.8-14.3); White Blood Cell 9.8 10^3/uL (4.4-10.8)
[2020-05-20 06:51] LABS: Basophils % (manual) 0 (0.0-2.0); Blast Cells 0; Eosinophils % (manual) 0 (0-7); Metamyelocytes % 0; Promyelocytes % 0; Reactive Lymphocytes 0
[2020-05-20] MEDS ORDERED: TETRACAINE 1% INJ 2 ML VIAL IJ ONE (06:51)
[2020-05-20] MEDS ORDERED: MIDAZOLAM HCL 1MG/1ML-2 ML VIAL ONE (06:57)
[2020-05-20] MEDS ORDERED: KETAMINE HCL 10 ML ONE (06:57)
[2020-05-20] MEDS ORDERED: GLYCOPYRROLATE 0.2 MG/ML 1ML VIAL ONE (06:58)
[2020-05-20] MEDS ORDERED: PHENYLEPHRINE HCL 10 MG/ML VL ONE (06:58)
[2020-05-20] MEDS ORDERED: ONDANSETRON HCL 4 MG/2 ML VIAL ONE (06:58)
[2020-05-20] MEDS ORDERED: PROPOFOL 10 MG/ML 20 ML IV ONE (06:58)
[2020-05-20] MEDS ORDERED: HYDROCORTISONE SOD SUCC 100 MG/2ML INJ VIAL ONE (06:58)
[2020-05-20] MEDS ORDERED: ePHEDrine SULFATE 50 MG/ML AMP ONE (06:58)
[2020-05-20 07:12] LABS: Calcium 7.9 mg/dL (8.5-10.1); Potassium 3.9 mmol/L (3.5-5.1)
[2020-05-20] MEDS ORDERED: ceFAZolin 1GM/50ML 100 ML IV ONE (07:51)
[2020-05-20] MEDS ORDERED: IPRATROPIUM BROM 0.5 MG/2.5ML INH SOL NEB ONE (08:45)
[2020-05-20] MEDS ORDERED: ALBUTEROL SULF 2.5 MG/0.5ML(0.5%) NEB SOLN NEB ONE (08:45)
[2020-05-20 09:00] VITALS: BP 122/64
[2020-05-20] MEDS: LACTATED RINGER'S 1,000 ML IV SCH ×2 (09:30→22:17)
[2020-05-20] MEDS ORDERED: MORPHINE SULF INJ 2 MG/ML SYRINGE 1ML IV PRN (09:30)
[2020-05-20] MEDS ORDERED: ONDANSETRON HCL 4 MG/2 ML VIAL IV PRN (10:00)
[2020-05-20] MEDS ORDERED: ACCU-CHEK COMFORT CURVE STRIP VI ONE (10:00)
[2020-05-20] MEDS: DexAMETHasone SOD PHOS 10MG/1ML VIAL INJ IV SCH (10:13)
[2020-05-20] MEDS: cefTRIAXone 1GM/50ML D5W 50 ML IV SCH (10:13)
[2020-05-20] MEDS: AZITHROMYCIN 500MG/ 250ML 250 ML IV SCH (10:13)
[2020-05-20] MEDS: ENOXAPARIN SOD 60 MG/0.6 ML SYRINGE SC SCH ×2 (10:14→22:07)
[2020-05-20] MEDS: KETOROLAC TROMETH 30 MG/ML 1ML VIAL IV SCH ×2 (12:17→17:10)
[2020-05-20 12:25] LABS: Band Neutrophils % (manual) 1; Lymphocytes % (manual) 16 (10.0-50.0); Monocytes % (manual) 4 (0-12); Myelocytes % 2
[2020-05-20 12:45] VITALS: BP 105/71
[2020-05-20] MEDS: SODIUM CHLOR 0.9% PF (SALINE LOCK) 10ML VIAL/SYR IV SCH ×2 (14:00→22:08)
[2020-05-20] MEDS: HYDROcodone-ACET 10/325MG TAB PO PRN (15:10)
[2020-05-20 17:42] VITALS: BP 100/47
[2020-05-20 22:00] VITALS: BP 98/47
[2020-05-21] MEDS: InsuLIN REG 1unit/0.01ml Soln (100units/ml) SC SCH ×4 (00:13→18:08)
[2020-05-21] MEDS: ACCU-CHEK COMFORT CURVE STRIP VI SCH ×4 (00:20→18:03)
[2020-05-21] MEDS: KETOROLAC TROMETH 30 MG/ML 1ML VIAL IV SCH ×3 (00:27→12:18)
[2020-05-21 05:00] VITALS: BP 122/56
[2020-05-21] MEDS: LACTATED RINGER'S 1,000 ML IV SCH (05:30)
[2020-05-21] MEDS: guaiFENesin 200 MG/10 ML UD PO SCH ×4 (06:00→18:00)
[2020-05-21] MEDS: SODIUM CHLOR 0.9% PF (SALINE LOCK) 10ML VIAL/SYR IV SCH ×3 (06:32→21:01)
[2020-05-21] MEDS: SOD CHL 0.45% 1,000 ML IV SCH ×2 (07:00→18:04)
[2020-05-21 07:26] LABS: Basophils # (auto) 0 10 ^3/uL (0-0.2); Eosinophils # (auto) 0.1 10 ^3/uL (0-0.8); Lymphocytes # (auto) 1.4 10 ^3/uL (0.4-5.4); Mean Corpuscular Volume 89.7 fL (80.0-100.0); Monocytes # (auto) 0.4 10 ^3/uL (0-1.3); Monocytes % (auto) 3.2 % (0.0-12.0); Neutrophils # (auto) 10.1 10 ^3/uL (1.6-8.6); Red Cell Distribution Width 14.4 % (11.8-14.3); White Blood Cell 11.9 10^3/uL (4.4-10.8)
[2020-05-21 07:29] LABS: Eosinophils % (auto) 0.8 % (0.0-7.0); Hematocrit 22.9 % (36.0-46.0); Hemoglobin 7.5 g/dL (12.2-16.2); Lymphocytes % (auto) 11.5 % (10.0-50.0); Mean Corpuscular Hemoglobin 29.4 pg (28.0-32.0); Mean Corpuscular Hgb Conc. 32.7 g/dL (32.0-36.0); Neutrophils % (auto) 84.5 % (37.0-80.0); Platelet Count (auto) 361 10^3/uL (140-450); Red Blood Cells 2.56 10^6/uL (4.0-5.20)
[2020-05-21 07:40] LABS: Potassium 4.1 mmol/L (3.5-5.1)
[2020-05-21 07:49] LABS: Calcium 7.9 mg/dL (8.5-10.1)
[2020-05-21] MEDS ORDERED: FAMO-12 PO (08:08)
[2020-05-21] MEDS ORDERED: BENZ100C70 PO (08:08)
[2020-05-21] MEDS ORDERED: ASCO500T11 PO (08:08)
[2020-05-21] MEDS ORDERED: DOCU100C8 PO (08:08)
[2020-05-21] MEDS ORDERED: HYDR-4072 PO (08:08)
[2020-05-21] MEDS ORDERED: DEX4T PO (08:08)
[2020-05-21] MEDS ORDERED: FER325T PO (08:08)
[2020-05-21] MEDS ORDERED: ASPI81CH59 PO (08:10)
[2020-05-21 08:36] VITALS: BP 107/63
[2020-05-21] MEDS: ALBUTEROL SULF HFA 90MCG INH 200DOSE IN PRN (09:22)
[2020-05-21] MEDS: DOCUSATE SOD 100 MG CAP PO SCH ×2 (10:00→21:01)
[2020-05-21] MEDS: FERROUS SULFATE 325 MG TAB PO SCH ×3 (10:00→18:03)
[2020-05-21] MEDS: FAMOTIDINE 20 MG TAB PO SCH (10:02)
[2020-05-21] MEDS: ENOXAPARIN SOD 60 MG/0.6 ML SYRINGE SC SCH ×2 (10:02→21:01)
[2020-05-21] MEDS: ASCORBIC ACID 500 MG TAB PO SCH ×2 (10:02→21:00)
[2020-05-21] MEDS: DexAMETHasone 4 MG TAB PO SCH (10:02)
[2020-05-21] MEDS: HYDROcodone-ACET 5/325MG TAB PO PRN (10:03)
[2020-05-21 13:11] VITALS: BP 109/65
[2020-05-21 17:06] VITALS: BP 103/47
[2020-05-21 22:00] VITALS: BP 108/51
[2020-05-21] MEDS: HYDROcodone-ACET 10/325MG TAB PO PRN (22:01)
[2020-05-22] VITALS (10 sets, daily range): BP systolic 101–133; BP diastolic 47–74
[2020-05-22] MEDS: ACCU-CHEK COMFORT CURVE STRIP VI SCH ×4 (00:23→18:30)
[2020-05-22] MEDS: InsuLIN REG 1unit/0.01ml Soln (100units/ml) SC SCH ×4 (00:24→18:30)
[2020-05-22] MEDS: guaiFENesin 200 MG/10 ML UD PO SCH ×3 (00:25→18:00)
[2020-05-22] MEDS: SODIUM CHLOR 0.9% PF (SALINE LOCK) 10ML VIAL/SYR IV SCH ×3 (06:07→21:21)
[2020-05-22] MEDS: SOD CHL 0.45% 1,000 ML IV SCH ×2 (06:22→22:05)
[2020-05-22 07:14] LABS: Hematocrit 17.4 % (36.0-46.0)
[2020-05-22 07:42] LABS: Hemoglobin 5.7 g/dL (12.2-16.2)
[2020-05-22] MEDS: ALBUTEROL SULF HFA 90MCG INH 200DOSE IN PRN (07:56)
[2020-05-22] MEDS: ENOXAPARIN SOD 60 MG/0.6 ML SYRINGE SC SCH (10:00)
[2020-05-22] MEDS: DOCUSATE SOD 100 MG CAP PO SCH ×2 (10:00→21:21)
[2020-05-22] MEDS ORDERED: ENOXAPARIN SOD 60 MG/0.6 ML SYRINGE SC SCH (10:00)
[2020-05-22] MEDS ORDERED: diphenhdrAMINE HCL 25 MG CAP PO ONE (10:00)
[2020-05-22] MEDS: DexAMETHasone 4 MG TAB PO SCH (10:00)
[2020-05-22] MEDS ORDERED: ACETAMINOPHEN 500 MG TAB PO ONE (10:00)
[2020-05-22] MEDS: ASCORBIC ACID 500 MG TAB PO SCH ×2 (12:00→21:21)
[2020-05-22] MEDS: FERROUS SULFATE 325 MG TAB PO SCH ×3 (12:00→18:00)
[2020-05-23] VITALS (9 sets, daily range): BP systolic 115–154; BP diastolic 48–67
[2020-05-23] MEDS: ACCU-CHEK COMFORT CURVE STRIP VI SCH ×5 (00:05→23:50)
[2020-05-23] MEDS: InsuLIN REG 1unit/0.01ml Soln (100units/ml) SC SCH ×5 (00:06→23:50)
[2020-05-23] MEDS: guaiFENesin 200 MG/10 ML UD PO SCH ×5 (06:00→23:50)
[2020-05-23] MEDS: SODIUM CHLOR 0.9% PF (SALINE LOCK) 10ML VIAL/SYR IV SCH ×3 (06:01→22:13)
[2020-05-23] MEDS: FERROUS SULFATE 325 MG TAB PO SCH ×3 (08:52→18:00)
[2020-05-23] MEDS: FAMOTIDINE 20 MG TAB PO SCH (08:53)
[2020-05-23] MEDS: DOCUSATE SOD 100 MG CAP PO SCH ×2 (08:53→22:13)
[2020-05-23] MEDS: DexAMETHasone 4 MG TAB PO SCH (08:53)
[2020-05-23] MEDS: ASCORBIC ACID 500 MG TAB PO SCH ×2 (08:54→22:13)
[2020-05-23 11:23] LABS: Hematocrit 26.4 % (36.0-46.0); Hemoglobin 8.9 g/dL (12.2-16.2); Mean Corpuscular Hemoglobin 29.8 pg (28.0-32.0); Mean Corpuscular Hgb Conc. 33.8 g/dL (32.0-36.0); Mean Corpuscular Volume 88.3 fL (80.0-100.0); Platelet Count (auto) 264 10^3/uL (140-450); Red Blood Cells 2.99 10^6/uL (4.0-5.20); Red Cell Distribution Width 16.2 % (11.8-14.3); White Blood Cell 15.2 10^3/uL (4.4-10.8)
[2020-05-23 11:34] LABS: Basophils % (manual) 0 (0.0-2.0); Blast Cells 0; Eosinophils % (manual) 0 (0-7); Myelocytes % 0; Promyelocytes % 0; Reactive Lymphocytes 0
[2020-05-23 13:44] LABS: Band Neutrophils % (manual) 15; Lymphocytes % (manual) 10 (10.0-50.0); Metamyelocytes % 3; Monocytes % (manual) 1 (0-12)
[2020-05-23 14:13] LABS: Calcium 7.4 mg/dL (8.5-10.1); Potassium 4.2 mmol/L (3.5-5.1)
[2020-05-23 14:15] LABS: BUN/Creatinine Ratio 25.9
[2020-05-23] MEDS: INSULIN LANTUS (GLARGINE) 1 /0.01ml (100units/ml) SC SCH (19:23)
[2020-05-23] MEDS: ALBUTEROL SULF HFA 90MCG INH 200DOSE IN PRN (20:20)
[2020-05-23] MEDS: HYDROcodone-ACET 5/325MG TAB PO PRN (23:51)
[2020-05-24 06:00] VITALS: BP 107/53
[2020-05-24] MEDS: guaiFENesin 200 MG/10 ML UD PO SCH ×4 (06:00→23:40)
[2020-05-24] MEDS: InsuLIN REG 1unit/0.01ml Soln (100units/ml) SC SCH ×4 (06:00→23:35)
[2020-05-24] MEDS: SODIUM CHLOR 0.9% PF (SALINE LOCK) 10ML VIAL/SYR IV SCH ×3 (06:03→22:11)
[2020-05-24] MEDS: ACCU-CHEK COMFORT CURVE STRIP VI SCH ×4 (06:04→23:33)
[2020-05-24 07:16] LABS: Hematocrit 27.6 % (36.0-46.0); Hemoglobin 9.1 g/dL (12.2-16.2); Mean Corpuscular Hemoglobin 29.7 pg (28.0-32.0); Mean Corpuscular Hgb Conc. 33.2 g/dL (32.0-36.0); Mean Corpuscular Volume 89.4 fL (80.0-100.0); Platelet Count (auto) 276 10^3/uL (140-450); Red Blood Cells 3.08 10^6/uL (4.0-5.20); White Blood Cell 14.8 10^3/uL (4.4-10.8)
[2020-05-24 07:50] LABS: Basophils % (manual) 0 (0.0-2.0); Blast Cells 0; Promyelocytes % 0; Reactive Lymphocytes 0
[2020-05-24 08:21] LABS: Potassium 4.3 mmol/L (3.5-5.1)
[2020-05-24] MEDS: FERROUS SULFATE 325 MG TAB PO SCH ×3 (08:26→18:00)
[2020-05-24 08:29] LABS: BUN/Creatinine Ratio 24.6
[2020-05-24 08:53] LABS: Band Neutrophils % (manual) 1; Eosinophils % (manual) 2 (0-7); Lymphocytes % (manual) 11 (10.0-50.0); Metamyelocytes % 1; Monocytes % (manual) 1 (0-12); Myelocytes % 3
[2020-05-24 09:00] VITALS: BP 66/72
[2020-05-24] MEDS: ASCORBIC ACID 500 MG TAB PO SCH ×2 (10:19→22:11)
[2020-05-24] MEDS: DOCUSATE SOD 100 MG CAP PO SCH ×2 (10:19→22:11)
[2020-05-24] MEDS: DexAMETHasone 4 MG TAB PO SCH (10:19)
[2020-05-24] MEDS: INSULIN LANTUS (GLARGINE) 1 /0.01ml (100units/ml) SC SCH (10:21)
[2020-05-24 13:00] VITALS: BP 133/72
[2020-05-24 17:00] VITALS: BP 129/93
[2020-05-24] MEDS: ALBUTEROL SULF HFA 90MCG INH 200DOSE IN PRN (21:25)
[2020-05-25] MEDS: guaiFENesin 200 MG/10 ML UD PO SCH ×2 (05:59→12:39)
[2020-05-25] MEDS: SODIUM CHLOR 0.9% PF (SALINE LOCK) 10ML VIAL/SYR IV SCH ×2 (05:59→14:25)
[2020-05-25] MEDS: ACCU-CHEK COMFORT CURVE STRIP VI SCH ×2 (06:00→12:00)
[2020-05-25] MEDS: InsuLIN REG 1unit/0.01ml Soln (100units/ml) SC SCH ×2 (06:00→12:40)
[2020-05-25 06:36] LABS: Basophils # (auto) 0 10 ^3/uL (0-0.2); Eosinophils # (auto) 0.1 10 ^3/uL (0-0.8); Eosinophils % (auto) 1.2 % (0.0-7.0); Lymphocytes # (auto) 1.6 10 ^3/uL (0.4-5.4); Mean Corpuscular Volume 89.8 fL (80.0-100.0); Monocytes # (auto) 0.5 10 ^3/uL (0-1.3)
[2020-05-25 06:40] LABS: Hematocrit 25.3 % (36.0-46.0); Hemoglobin 8.3 g/dL (12.2-16.2); Lymphocytes % (auto) 13.5 % (10.0-50.0); Mean Corpuscular Hemoglobin 29.5 pg (28.0-32.0); Mean Corpuscular Hgb Conc. 32.9 g/dL (32.0-36.0); Monocytes % (auto) 4.5 % (0.0-12.0); Neutrophils # (auto) 9.8 10 ^3/uL (1.6-8.6); Neutrophils % (auto) 80.8 % (37.0-80.0); Nucleated Red Blood Cells % 0.2 %; Platelet Count (auto) 247 10^3/uL (140-450); Red Blood Cells 2.82 10^6/uL (4.0-5.20); Red Cell Distribution Width 16.3 % (11.8-14.3); White Blood Cell 12.1 10^3/uL (4.4-10.8)
[2020-05-25 06:53] LABS: Calcium 7.8 mg/dL (8.5-10.1)
[2020-05-25 07:00] LABS: BUN/Creatinine Ratio 21.8
[2020-05-25 08:00] VITALS: BP 132/67
[2020-05-25] MEDS: DOCUSATE SOD 100 MG CAP PO SCH (09:31)
[2020-05-25] MEDS: FAMOTIDINE 20 MG TAB PO SCH (09:31)
[2020-05-25] MEDS: ASCORBIC ACID 500 MG TAB PO SCH (09:31)
[2020-05-25] MEDS: DexAMETHasone 4 MG TAB PO SCH (09:31)
[2020-05-25] MEDS: FERROUS SULFATE 325 MG TAB PO SCH ×2 (09:31→12:39)
[2020-05-25] MEDS: INSULIN LANTUS (GLARGINE) 1 /0.01ml (100units/ml) SC SCH (09:32)
== END 2020-05-25 14:31 | DRG 981 ==
LOC: EDBD 18:15 → ER 18:15 → TELE 18:16 → TELE-EAST 05-05 23:34
PROVIDERS: ADMIT Orthopaedic Surgery; ATTEND Orthopaedic Surgery
PROC: XW033E5 Introduction of Remdesivir Anti-infective into Peripheral Vein, Percutaneous Approach, New Technology Group 5 (ICD-10-PCS; principal; 2020-05-10)
PROC: 0QS736Z Reposition Left Upper Femur with Intramedullary Internal Fixation Device, Percutaneous Approach (ICD-10-PCS; 2020-05-20)
PROC: 30230N1 Transfusion of Nonautologous Red Blood Cells into Peripheral Vein, Open Approach (ICD-10-PCS; 2020-05-22)
DX: U07.1 COVID-19 (principal); S72.142A Displaced intertrochanteric fracture of left femur, initial encounter for closed fracture; J12.89 Other viral pneumonia; N17.0 Acute kidney failure with tubular necrosis; J96.01 Acute respiratory failure with hypoxia; J98.11 Atelectasis; D62 Acute posthemorrhagic anemia; E11.22 Type 2 diabetes mellitus with diabetic chronic kidney disease; I12.9 Hypertensive chronic kidney disease with stage 1 through stage 4 chronic kidney disease, or unspecified chronic kidney disease; K57.30 Diverticulosis of large intestine without perforation or abscess without bleeding; N32.89 Other specified disorders of bladder; R33.9 Retention of urine, unspecified; Z90.49 Acquired absence of other specified parts of digestive tract; Y93.89 Activity, other specified; Z75.1 Person awaiting admission to adequate facility elsewhere; Y92.098 Other place in other non-institutional residence as the place of occurrence of the external cause; Y99.8 Other external cause status; N18.32 Chronic kidney disease, stage 3b; E11.65 Type 2 diabetes mellitus with hyperglycemia; Z79.84 Long term (current) use of oral hypoglycemic drugs
CPT/HCPCS: 36415; 36600; 70450; 71045; 71250; 72125; 72170; 73501; 73502; 74176; 76001; 76775; 80048; 80053; 81001; 82306; 82570; 82728; 82805; 82962; 83036; 83605; 83735; 83880; 83970; 84100; 84156; 84300; 84484; 85007; 85014; 85018; 85025; 85027; 85379; 85610; 86141; 86850; 86900; 86901; 86920; 87040; 87426; 93005; 93306; 93970; 94640; 96365; 96366; 96375; 97110; 97116; 97530; A4565; G0378; J0690; J0696; J1100; J1815; J1885; J1956; J2250; J2405; J2704